=== PATIENT | female | born 1965 | race African-American/Black ===

== ENCOUNTER 2022-07-06 22:49 | Emergency (ER) | payer OTHER ==
[~2022-07-06] VITALS: Ht 162.6 cm; Wt 113.6 kg
[2022-07-07 00:08] VITALS: BP 156/89
[2022-07-07] MEDS ORDERED: IBUP800T27 PO (01:12)
[2022-07-07] MEDS ORDERED: KETOROLAC TROMETH 60MG/2ML VIAL IM ONE (01:30)
== END 2022-07-07 02:33 | disposition home or self-care (01) ==
LOC: ER 22:52
DX: S63.91XA Sprain of unspecified part of right wrist and hand, initial encounter (principal); I10 Essential (primary) hypertension; Z79.1 Long term (current) use of non-steroidal anti-inflammatories (NSAID); W01.0XXA Fall on same level from slipping, tripping and stumbling without subsequent striking against object, initial encounter; Y93.89 Activity, other specified; Y92.89 Other specified places as the place of occurrence of the external cause; Y99.8 Other external cause status
CPT/HCPCS: 29125; 73130; 96372; 99283; J1885